=== PATIENT | female | born 1970 | race African-American/Black ===

== ENCOUNTER 2018-07-24 13:46 | Emergency (ER) | payer OTHER ==
[~2018-07-24] VITALS: Ht 167.6 cm; Wt 59.0 kg
--- NOTE | 2018-07-24 13:49 | NUR ---
ED Nurse Note: Pt was picked up by ambulance from a bus due to ETOH and R foot pain 10/10 elisa. Pt had a foot fracture 1 week ago, got wrapped, boot and walker with her. Pt answers questions by staffs but seems sleepy. Vital signs stable elisa. Will cont to monitor.
--- NOTE | 2018-07-24 14:23 | NUR ---
ED Nurse Note: Rt foot is currenlt being khanh wrapped.
--- NOTE | 2018-07-24 14:25 | NUR ---
ED Nurse Note: Pt walked out with walker with steady gait.
--- NOTE | 2018-07-24 14:25 | NUR ---
ED Nurse Note: Pt is being rude and verbally aggressive with staffs stated " Fuck you chink! Im gonna blow your head off", escorted out with discharge paper by security.
[2018-07-24] MEDS ORDERED: Acetaminophen 500mg (ES) tab ORAL ONE (14:30)
--- NOTE | 2018-07-24 14:51 | Emergency Room Report ---
History of Present Illness General Chief Complaint: Lower Extremity Injury Present Illness HPI 48-year-old female patient presents the ER brought in by ambulance complaining of right foot pain. EMS also reports that patient appears intoxicated with alcohol. Patient reports pain in right foot. States that she fell off a bleacher 2 weeks ago and fractured her right foot. States that she was previously seen and diagnosed with foot fracture. Requesting pain medication currently. Denies acute injury or trauma since previous injury. Reports pain and swelling. Has been taking Tylenol for relief of pain symptoms. Requesting further pain medication. Denies other acute aggravating or relieving factors. States has follow-up with her primary care provider scheduled for September of this year, states has not seen inclusion specialist. Patient brought into the ER with Brown wrap and boot on right foot as well as walker that she uses secondary to pain with ambulation. Allergies: Coded Allergies: No Known Allergies (Unverified , 07/24/18) Patient History Past Medical History: see triage record Reviewed Nursing Documentation: PMH: Agreed; PSxH: Agreed Nursing Documentation-PMH Past Medical History: No Stated History Review of Systems All Other Systems: negative except mentioned in HPI Physical Exam Vital Signs Date Time Temp Pulse Resp B/P (MAP) Pulse Ox O2 Delivery O2 Flow Rate FiO2 07/24/18 13:43 98.1 88 16 114/73 98 Room Air Sp02 EP Interpretation: reviewed, normal General Appearance: well appearing, no apparent distress, alert, GCS 15, non- toxic Head: normocephalic, atraumatic Eyes: bilateral eye normal inspection, bilateral eye PERRL ENT: hearing grossly normal, normal pharynx, no angioedema, normal voice, uvula midline, moist mucus membranes Neck: full range of motion Respiratory: lungs clear, normal breath sounds, no rhonchi, no respiratory distress, no accessory muscle use, no wheezing, speaking full sentences Cardiovascular #1: regular rate, rhythm, no edema Cardiovascular #2: 2+ dorsalis pedis (R), 2+ dorsalis pedis (L) Musculoskeletal: back normal, digits/nails normal, gait/station normal, normal range of motion, swelling - Dorsum of right foot and ankle, other - NVI, cap refill less than 2 seconds, no pallor or pulselessness, no paresthesias, tender - Dorsum of right foot and base of fifth metatarsal Neurologic: alert, oriented x3, responsive, motor strength/tone normal, sensory intact Psychiatric: mood/affect normal Skin: no rash Medical Decision Making PA Attestation Dr. Chavez is my supervising Physician whom patient management has been discussed with. Diagnostic Impression: Primary Impression: History of foot fracture Additional Impression: Alcohol intoxication ER Course Pt. presents to the ED c/o hx of foot fracture and requesting pain medication. Ddx considered but are not limited to fracture, sprain, strain, contusion, dislocation. No erythema, no warmth to touch, no fever, nontoxic appearing, low suspicion for septic joint. Soft compartments, no pulselessness, no pallor, no paresthesias, low suspicion for compartment syndrome at this time. Vital signs: are WNL, pt. is afebrile Ordered X-ray and pain medication. ER COURSE Provided with pain medication. Splint was applied to the right foot and ankle and was checked afterwards by me showing good alignment and support with distal neurovascular functioning intact. Patient instructed on RICE method: rest, ice, compression, elevation. Patient instructed on rest, ice and heat. Patient instructed to be NWB Contact information for orthopedic urgent care provided, follow-up with urgent care if unable to followup with primary care provider and get referral to inclusion specialist. Followup with primary care provider. Discuss referral to ortho/pain management/ PT as needed. Discuss further imaging with MRI/CT as needed. While waiting in the ER for repeat x-ray, patient becomes and abrasive, yelling at patient's and other members of the hospital staff. Repeatedly asked patient not to scream at nursing staff or patients in the hospital. Patient able to ambulate independently with use of walker. Patient will be discharged prior to x-ray, states she is able to walk, continues to yell at nursing staff and hospital personnel, will not stay still for x-ray, okay for outpatient discharge and follow-up. Advised patient follow- up with inclusion specialist. Patient discharged. DISCHARGE: At this time pt. is stable for d/c to home. Patient is resting comfortably, in no acute distress, nontoxic appearing, talking without difficulty. Will provide printed patient care instructions, and any necessary prescriptions. Patient instructed to follow with primary care provider in 3 - 5 days and to request further follow-up as needed. Care plan and follow up instructions have been discussed with the patient prior to discharge. Take medications as directed. Patient questions asked and answered. Patient reports understanding and agreement to treatment plan. ER precautions given, patient instructed to return to ER immediately for any new or worsening of symptoms. - Please note that this Emergency Department Report was dictated using [employer] software, occasionally this can lead to erroneous entry secondary to interpretation by the dictation equipment. Last Vital Signs Date Time Temp Pulse Resp B/P (MAP) Pulse Ox O2 Delivery O2 Flow Rate FiO2 07/24/18 13:43 98.1 88 16 114/73 98 Room Air Disposition: HOME, SELF-CARE Condition: Stable Patient Instructions: Ankle Pain Additional Instructions: Patient instructed to follow up with primary care provider and discuss further referral to orthopedics/physical therapy/pain management as needed. If unable to followup with PCP, followup with orthopedic urgent care in 5-7 days , call to schedule appointment. Patient instructed on RICE method: rest, ice, compression, elevation. Patient instructed to NWB Take medications as directed. Patient questions asked and answered. ER precautions given, patient instructed to return to ER immediately for any new or worsening of symptoms. [facility] [address] [facility] [id number] [facility], [id number] [email or web address] Rober Joyce Jul 24, 2018 14:50
[2018-07-24 14:54] VITALS: BP 114/73
== END 2018-07-24 14:45 | disposition home or self-care (01) ==
LOC: EDBD 13:46 → EMR 14:18
DX: M79.671 Pain in right foot (principal); F10.129 Alcohol abuse with intoxication, unspecified; S92.901D Unspecified fracture of right foot, subsequent encounter for fracture with routine healing; W19.XXXD Unspecified fall, subsequent encounter
CPT/HCPCS: 29515; 99283